=== PATIENT | male | born 1955 | race Caucasian/White ===

== ENCOUNTER 2021-03-24 19:31 | Emergency (ER) | payer OTHER, SELFPAY ==
[2021-03-24] VITALS (12 sets, daily range): BP systolic 150–169; BP diastolic 66–83; PULSE 60–66; RESP 9–20; TEMP 36.7; O2SAT 92–99
--- NOTE | ~2021-03-24 | CT_ITS ---
EXAMINATION: CT brain wo con INDICATION: Seizure COMPARISON: None TECHNIQUE: Standard unenhanced head CT. The dose-length product (DLP) was 605.33 mGy-cm. The mA was a djusted according to patient size. Iterative reconstruction technique was employed. FINDINGS: There is no intracranial hemorrhage, acute infarction, or abnormal mass lesion. The ventric les are normal. There is no abnormal mass effect or midline shift. The sandoval-white matter differentiat ion is normal. The basal cisterns are patent. The orbits are normal. Intracranial calcified cerebral atherosclerosis is noted. The paranasal sinuses, mastoids and calvarium are normal. IMPRESSION: 1. No acute intracranial abnormality. Reviewed, dictated and finalized at location A.
--- NOTE | 2021-03-24 19:58 | ECG_ITS ---
Measurements Intervals [place] Rate: 62 P: -7 MO: 161 QRS: 5 QRSD: 93 T: 54 QT: 376 QTc: 382 Interpretive Statements SINUS RHYTHM BASELINE ARTIFACT- I, II, III, AVF, V1, V3-V6 NORMAL ECG Electronically Signed On 03-25-2021 7:03:36 CDT by Delta Zaman D.O.
[2021-03-24 20:14] LABS: Glucose Point of Care 430 mg/dl (65-105)
[2021-03-24 20:29] LABS: Basophils Absolute Auto 0.1 K/mm3 (0.0-0.1); Basophils Percent Auto 0.6 % (0.2-1.2); Eosinophils Absolute Auto 0.2 K/mm3 (0-0.3); Eosinophils Percent Auto 2.1 % (0-4.4); Hematocrit 40.1 % (42.0-52.0); Hemoglobin 14.1 g/dL (14.0-18.0); Immature Granulocyte Absolute 0.09 K/mm3 (0.00-0.031); Lymphocytes Absolute Auto 1.66 K/mm3 (0.9-3.2); Lymphocytes Percent Auto 18.3 % (18.3-44.2); Mean Corpuscular HGB Conc 35.2 g/dl (32-36); Mean Corpuscular Volume 88.1 fl (80-100); Mean Platelet Volume 9.9 fl (7.4-10.4); Monocytes Absolute Auto 0.8 K/mm3 (0.1-0.6); Monocytes Percent Auto 8.9 % (2.6-8.5); Neutrophils Absolute Auto 6.3 K/mm3 (1.3-6.7); Neutrophils Percent Auto 69.1 % (45.5-73.1); Platelet Count Result 326 k/mm3 (150-375); Red Blood Count 4.55 M/mm3 (4.6-6.20); Red Cell Distribution Width 12.2 % (11.5-14.5); White Blood Count 9.1 K/mm3 (4.5-10.0)
[2021-03-24 20:43] LABS: Anion Gap 11 mmol/L (8-16); Blood Urea Nitrogen 19 mg/dL (9-20); Calcium 9.1 mg/dL (8.4-10.2); Carbon Dioxide 26 mmol/L (22-30); Chloride 96 mmol/L (98-107); Estimated CRCL calculation 50 ml/min; Estimated Glomerular Filt Rate 56; Glucose 407 mg/dL (65-110); Sodium 133 mmol/L (137-145)
[2021-03-24] MEDS: SODIUM CHLORIDE 0.9% IV 1,000 ML 999 ML IV CONT (20:59)
[2021-03-24] MEDS: LORazepam INJ (*CRX) 2 MG/ML VIAL 1 MG IV PUSH (20:59)
[2021-03-24] MEDS: ONDANSETRON INJ 4 MG/2 ML VIAL IV PUSH (21:45)
[2021-03-24] MEDS: levETIRAcetam 1000MG/NACL100ML 1,000 MG/100 ML BAG 400 MG IVPB (21:46)
[2021-03-24 22:43] LABS: Creatine Kinase 109 U/L (55-170)
[2021-03-24 22:58] LABS: Glucose Point of Care 262 mg/dl (65-105)
--- NOTE | 2021-03-24 22:59 | ED.SEIZURE ---
HPI - Seizure General Chief Complaint: Syncope Stated Complaint: blanked out Time Seen by Provider: 03/24/21 20:03 Source: patient and family Mode of arrival: EMS Limitations: no limitations History of Present Illness complaint: possible seizure Onset (ago): hour(s) (1) Description of Episode: tonic-clonic movement and post-event confusion Duration of episode: 30 -: second(s) Witnessed: Yes - by Bystander Trauma: No Seizure History: No Place: home Possible Precipitating Event: none Associated symptoms: confusion Treatments prior to arrival: none Related Data Home Medications Medication Instructions Recorded Confirmed testosterone cypionate 200 mg/mL 150 mg IM .every 2 week ml 05/30/19 10/02/20 intramuscular oil Allergies Allergy/AdvReac Type Severity Reaction Status Date / Time exenatide Allergy Intermediate Nausea And Verified 03/24/21 22:30 Vomiting dulaglutide [From Trulicity] Allergy Mild Unknown Verified 03/24/21 22:30 Review of Systems Review of Systems: CONSTITUTIONAL: no fever, no weight loss, no confusion EYES: no vision changes, no eye pain ENT: no rhinorrhea, no sore throat, no difficulty swallowing CARDIOVASCULAR: no chest pain, no leg edema, no palpitations RESPIRATORY: no cough, no shortness of breath, no hemoptysis GASTROINTESTINAL: no abdominal pain, no nausea, no vomiting, no diarrhea GENITOURINARY: no flank pain, no dysuria, no hematuria SKIN: no rash, no jaundice MUSCULOSKELETAL: no back pain, no trauma. 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 2 diabetes mellitus with other diabetic kidney complication Family History Family History Mother Family history of diabetes mellitus in first degree relative Diabetes mellitus Sibling Family history of diabetes mellitus in first degree relative Family history of malignant neoplasm of kidney Social History Social History (Updated 01/30/21 @ 09:53 by Adrienne Parish) Second hand tobacco smoke exposure: Yes Alcohol intake: current Substance use: never Substance use type: does not use Gender identity (if verbalized by the patient): Male Exam Narrative: General: alert, afebrile, answering all questions appropriately Head: normocephalic, atraumatic Eyes: EOMI bilaterally, anicteric, no injection ENT: moist mucous membranes, oropharynx patent, no rhinorrhea, no oral lesion Neck: supple, trachea midline, no JVD Chest: equal chest rise bilaterally, no chest wall trauma noted Lungs: clear to auscultation bilaterally, respirations unlabored CV: regular rate, no GURPREET B, calf size equal bilaterally Abd: soft, non-distended, non-tender, no rebound, no gaurding, negative Lopez's : no CVA tenderness B, bladder non-distended, no incontinence Back: no lumbar bony tenderness. paraspinal muscles without spasm EXT: no deformity noted, moving all extremities equally Skin: warm, dry, no pallor Neuro: alert, oriented x 3; CN 2-12 grossly intact, no dysarthria Psych: affect appropriate, though content normal Course Course Emergency Course: Patient with another witnessed seizure in ED; states LUE >RUE tonic clonic, legs extended lasting about 1 minute. After event, patient not confused, states could hear during event but not respond. Seizure resolved after 1mg ativan IV; Patient sent to CT scan. CT Brain with no acute changes, electrolytes normal. Spoke to neurologist windows migration technician who states ok for pa
== END 2021-03-24 23:23 | disposition home or self-care (01) ==
PROVIDERS: Emergency Medicine; Emergency Provider Emergency Medicine; PCP Family Medicine
DX: G40.209 Localization-related (focal) (partial) symptomatic epilepsy and epileptic syndromes with complex partial seizures, not intractable, without status epilepticus (principal); I12.9 Hypertensive chronic kidney disease with stage 1 through stage 4 chronic kidney disease, or unspecified chronic kidney disease; E11.22 Type 2 diabetes mellitus with diabetic chronic kidney disease; N18.31 Chronic kidney disease, stage 3a; K21.9 Gastro-esophageal reflux disease without esophagitis; E78.2 Mixed hyperlipidemia; E66.3 Overweight; Z68.28 Body mass index [BMI] 28.0-28.9, adult; Z77.22 Contact with and (suspected) exposure to environmental tobacco smoke (acute) (chronic); Z79.4 Long term (current) use of insulin; Z79.84 Long term (current) use of oral hypoglycemic drugs
CPT/HCPCS: 36415; 70450; 80048; 82550; 82948; 85025; 93005; 96361; 96365; 96375; 99284; J1953; J2060; J2405; J7030